=== PATIENT | female | born 1995 | race Caucasian/White ===

== ENCOUNTER 2018-10-03 16:50 | Emergency (ER) | payer BC ==
--- OUTSIDE RECORDS SUMMARY | 2018-10-03 16:52 | XMS REPORT ---
:1995 [facility] Address [address] [place] [address] Care Team Providers Name Role Phone Unavailable Unavailable Unavailable Payers Payer Name Policy Type Policy Number Effective Date Expiration Date Problems This patient has no known problems. Allergies, Adverse Reactions, Alerts Allergy Allergy Status Severity Reaction(s) Onset Inactive Treating Comments Name Type Date Date Clinician No Known DA Active U 2017-07 Allergies -12 00:00:0 0 Medications This patient has no known medications.
[2018-10-03] MEDS ORDERED: ACETAMINOPHEN 325 MG TABLET ONE (19:33)
--- NOTE | 2018-10-03 19:33 | ER ---
Nurse's Notes [facility] Name: Jennifer Norton Age: 22 yrs Sex: Female : 1995 Arrival Date: 10/03/2018 Time: 16:53 Bed 20 Private MD: None, None Diagnosis: Acute upper respiratory infection, unspecified Presentation: 10/03 17:15 Presenting complaint: Patient states: LMP- pt forgot but states due date of , 12/17/18; i have cough and fever that started yesterday; T- 100.1; took Tylenol; reports SOB;. Transition of care: patient was not received from another setting of care. Onset of symptoms was October 03, 2018. Risk Assessment: Do you want to hurt yourself or someone else? Patient reports no desire to harm self or others. Initial Sepsis Screen: Does the patient meet any 2 criteria? No. Patient's initial sepsis screen is negative. Does the patient have a suspected source of infection? No. Patient's initial sepsis screen is negative. Care prior to arrival: None. 17:15 Method Of Arrival: Ambulatory 17:15 Acuity: MROENO 4 hj Triage Assessment: 17:18 General: Appears in no apparent distress. uncomfortable, Behavior is calm, cooperative, hj appropriate for age. Pain: Complains of pain in back. 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 - Social history:: Smoking status: Patient/guardian denies using tobacco, Patient/guardian denies using alcohol. - Ebola Screening: : Patient negative for fever greater than or equal to 101.5 degrees Fahrenheit, and additional compatible Ebola Virus Disease symptoms Patient denies exposure to infectious person Patient denies travel to an Ebola-affected area in the 21 days before illness onset. Screenin:19 Abuse screen: Denies threats or abuse. Denies injuries from another. Nutritional hj screening: No deficits noted. Tuberculosis screening: No symptoms or risk factors identified. Fall Risk None identified. Assessment: 17:33 General: Appears uncomfortable, Behavior is calm, cooperative. Pain: Complains of pain ed1 in back Pain currently is 6 out of 10 on a pain scale. Quality of pain is described as aching. Neuro: Level of Consciousness is awake, alert, obeys commands, Oriented to person, place, time, situation. Cardiovascular: Denies chest pain, Heart tones S1 S2 present. Respiratory: Reports cough that is Airway is patent Respiratory effort is even, unlabored, Respiratory pattern is regular, symmetrical, Breath sounds are clear bilaterally. GI: No signs and/or symptoms were reported involving the gastrointestinal system. : No signs and/or symptoms were reported regarding the genitourinary system. EENT: No signs and/or symptoms were reported regarding the EENT system. Derm: Skin is intact, is healthy with good turgor, Skin is dry, Skin is normal, Skin temperature is warm. Musculoskeletal: Circulation, motion, and sensation intact. Range of motion: intact in all extremities. 19:13 Reassessment: Patient appears in no apparent distress at this time. No changes from ed1 previously documented assessment. Patient and/or family updated on plan of care and expected duration. Pain level reassessed. Patient is alert, oriented x 3, equal unlabored respirations, skin warm/dry/pink. Patient states symptoms have not improved. Vital Signs: 17:19 BP 109 / 68; Pulse 112; Resp 20; Temp 100.4(O); Pulse Ox 99% on R/A; Weight 69.85 kg; Height 5 ft. 2 in. (157.48 cm); 19:13 BP 110 / 70; Pulse 113; Resp 20; Temp 99.7(TE); Pulse Ox 100% on R/A; Pain 4/10; ed1 17:19 Body Mass Index 28.17 (69.85 kg, 157.48 cm) ED Course: 16:53 Patient arrived in ED. mr 16:54 None, None is Private Physician. mr 17:17 Triage completed. 17:19 Arm band placed on right wrist. 17:20 Patient has correct armband on for positive identification. Bed in low position. Call light in reach. Side rails up X 1. Adult w/ patient. 17:26 Kayleigh Serra, RN is Primary Nurse. ed1 17:28 Geno Nesbitt FNP is PHCP. ca 17:28 Esequiel Villalta MD is Attending Physician. ca 18:02 Flu Sent. ed1 19:40 No provider procedures requiring assistance completed. Patient did not have IV access ed1 during this emergency room visit. Administered Medications: 19:24 Drug: Tylenol 650 mg Route: PO; ed1 19:41 Follow up: Response: No adverse reaction ed1 Outcome: 19:33 Discharge ordered by . ca 19:40 Discharged to home ambulatory. ed1 19:40 Condition: good 19:40 Discharge instructions given to patient, Instructed on discharge instructions, follow up and referral plans. medication usage, Demonstrated understanding of instructions, follow-up care, medications, Prescriptions given X 1. 19:40 Patient left the ED. ed1 Signatures: Geno Nesbitt FNP WIRELESS INTERNET INSTALLER ca Tess Cervantes mr SerraKayleigh, RN RN ed1 Sergio Young RN RN Corrections: (The following items were deleted from the chart) 17:21 17:19 Pulse 112bpm; Resp 20bpm; Pulse Ox 99% RA; Temp 100.4F Oral; 69.85 kg; Height 5 hj ft. 2 in.; BMI: 28.1; hj
--- NOTE | 2018-10-03 19:33 | EDPHYS ---
Physician Documentation [facility] Name: Jennifer Norton Age: 22 yrs Sex: Female : 1995 Arrival Date: 10/03/2018 Time: 16:53 Bed 20 Private MD: None, None ED Physician Esequiel Villalta HPI: 10/03 19:31 This 22 yrs old Female presents to ER via Ambulatory with complaints of nh Cough, Fever. 19:31 The patient or guardian reports cough, that is intermittent. Onset: The nh symptoms/episode began/occurred this morning. Severity of symptoms: At their worst the symptoms were moderate, just prior to arrival, in the emergency department the symptoms are unchanged. Modifying factors: The symptoms are alleviated by nothing, the symptoms are aggravated by nothing. The patient has not experienced similar symptoms in the past. The patient has not recently seen a physician. 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 - Social history:: Smoking status: Patient/guardian denies using tobacco, Patient/guardian denies using alcohol. - Ebola Screening: : Patient negative for fever greater than or equal to 101.5 degrees Fahrenheit, and additional compatible Ebola Virus Disease symptoms Patient denies exposure to infectious person Patient denies travel to an Ebola-affected area in the 21 days before illness onset. ROS: 19:31 Eyes: Negative for injury, pain, redness, and discharge, Neck: Negative for injury, nh pain, and swelling, Cardiovascular: Negative for chest pain, palpitations, and edema, Abdomen/GI: Negative for abdominal pain, nausea, vomiting, diarrhea, and constipation, Back: Negative for injury and pain, : Negative for injury, bleeding, discharge, and swelling, MS/Extremity: Negative for injury and deformity, Skin: Negative for injury, rash, and discoloration, Neuro: Negative for headache, weakness, numbness, tingling, and seizure. 19:31 Constitutional: Positive for fever. 19:31 ENT: Positive for sinus pain, sore throat. 19:31 Respiratory: Positive for cough. Exam: 19:31 Constitutional: This is a well developed, well nourished patient who is awake, alert, nh and in no acute distress. Head/Face: Normocephalic, atraumatic. Eyes: Pupils equal round and reactive to light, extra-ocular motions intact. Lids and lashes normal. Conjunctiva and sclera are non-icteric and not injected. Cornea within normal limits. Periorbital areas with no swelling, redness, or edema. ENT: Nares patent. No nasal discharge, no septal abnormalities noted. Tympanic membranes are normal and external auditory canals are clear. Oropharynx with no redness, swelling, or masses, exudates, or evidence of obstruction, uvula midline. Mucous membranes moist. Neck: Trachea midline, no thyromegaly or masses palpated, and no cervical lymphadenopathy. Supple, full range of motion without nuchal rigidity, or vertebral point tenderness. No Meningismus. Chest/axilla: Normal chest wall appearance and motion. Nontender with no deformity. No lesions are appreciated. Cardiovascular: Regular rate and rhythm with a normal S1 and S2. No gallops, murmurs, or rubs. Normal PMI, no JVD. No pulse deficits. Respiratory: Lungs have equal breath sounds bilaterally, clear to auscultation and percussion. No rales, rhonchi or wheezes noted. No increased work of breathing, no retractions or nasal flaring. Abdomen/GI: Soft, non-tender, with normal bowel sounds. No distension or tympany. No guarding or rebound. No evidence of tenderness throughout. Back: No spinal tenderness. No costovertebral tenderness. Full range of motion. Skin: Warm, dry with normal turgor. Normal color with no rashes, no lesions, and no evidence of cellulitis. MS/ Extremity: Pulses equal, no cyanosis. Neurovascular intact. Full, normal range of motion. Neuro: Awake and alert, GCS 15, oriented to person, place, time, and situation. Cranial nerves II-XII grossly intact. Motor strength 5/5 in all extremities. Sensory grossly intact. Cerebellar exam normal. Normal gait. Psych: Awake, alert, with orientation to person, place and time. Behavior, mood, and affect are within normal limits. Vital Signs: 17:19 BP 109 / 68; Pulse 112; Resp 20; Temp 100.4(O); Pulse Ox 99% on R/A; Weight 69.85 kg; hj Height 5 ft. 2 in. (157.48 cm); 19:13 BP 110 / 70; Pulse 113; Resp 20; Temp 99.7(TE); Pulse Ox 100% on R/A; Pain 4/10; ed1 17:19 Body Mass Index 28.17 (69.85 kg, 157.48 cm) hj MDM: 17:28 Patient medically screened. il 19:31 Data reviewed: vital signs, nurses notes, lab test result(s), I have discussed the il patient's presentation/case with the attending Emergency Department Physician; and as a result, I will discharge patient. Counseling: I had a detailed discussion with the patient and/or guardian regarding: the historical points, exam findings, and any diagnostic results supporting the discharge/admit diagnosis, lab results, the need for outpatient follow up, to return to the emergency department if symptoms worsen or persist or if there are any questions or concerns that arise at home. 10/03 17:38 Order name: Flu ed1 10/03 17:38 Order name: Flu il Administered Medications: 19:24 Drug: Tylenol 650 mg Route: PO; ed1 19:41 Follow up: Response: No adverse reaction ed1 Disposition: 10/03/18 19:33 Discharged to Home. Impression: Acute upper respiratory infection, unspecified. - Condition is Stable. - Discharge Instructions: Upper Respiratory Infection, Adult. - Prescriptions for Zithromax Z- Perico 250 mg Oral Tablet - take 1 tablet by ORAL route as directed for 5 days Day 1 - take two (2) tablets one time. Day 2, 3, 4 , 5 take one (1) tablet once daily.; 6 tablet. - Medication Reconciliation Form, Thank You Letter, Antibiotic Education, Prescription Opioid Use form. - Follow up: Private Physician; When: 2 - 3 days; Reason: Recheck today's complaints. - Problem is new. - Symptoms are unchanged. Signatures: Dispatcher [employer] EDMS Geno Nesbitt FNP LUMBER SORTER [place] Kayleigh Serra RN RN ed1 Sergio Young RN RN Corrections: (The following items were deleted from the chart) 19:40 19:33 10/03/2018 19:33 Discharged to Home. Impression: Acute upper respiratory ed1 infection, unspecified. Condition is Stable. Forms are Medication Reconciliation Form, Thank You Letter, Antibiotic Education, Prescription Opioid Use. Follow up: Private Physician; When: 2 - 3 days; Reason: Recheck today's complaints. Problem is new. Symptoms are unchanged. nh
== END 2018-10-03 19:40 | disposition home or self-care (01) ==
LOC: ER 16:50
DX: J06.9 Acute upper respiratory infection, unspecified (principal)
CPT/HCPCS: 87804; 99283

== ENCOUNTER 2018-12-27 12:04 | Emergency (ER) | payer BC ==
--- OUTSIDE RECORDS SUMMARY | 2018-12-27 12:07 | XMS REPORT ---
:1995 [facility] Address [address] [place] [address] Care Team Providers Name Role Phone Unavailable Unavailable Unavailable Payers Payer Name Policy Type Policy Number Effective Date Expiration Date Problems This patient has no known problems. Allergies, Adverse Reactions, Alerts Allergy Allergy Status Severity Reaction(s) Onset Inactive Treating Comments Name Type Date Date Clinician No Known DA Active U 2018-11 Drug -28 Allergies 00:00:0 0 No Known DA Active U 2017-07 Allergies -12 00:00:0 0 Medications This patient has no known medications. Results Test Description Test Time Test Comments Text Results Atomic Results Result Comments CBC W/AUTO DIFF 2018-12-21 07:05:00 Test Item Value Reference Range Comments WHITE BLOOD CELL (test code=WBC) 13.1 K/mm3 6.6-12.1 RED BLOOD CELL (test code=RBC) 3.49 M/mm3 3.45-5.01 HEMOGLOBIN (test code=HGB) 10.5 g/dL 10.7-13.9 HEMATOCRIT (test code=HCT) 32.6 % 32.1-42.1 MEAN CELL VOLUME (test code=MCV) 93 fL 84.1-94.8 MEAN CELL HGB (test code=MCH) 30.1 pg 27-35 MEAN CELL HGB CONCETRATION (test code=MCHC) 32.2 gm/dL 32.2-34.1 RED CELL DISTRIBUTION WIDTH (test code=RDW) 14.9 % 12.4-16.5 PLATELET COUNT (test code=PLT) 208 K/mm3 133-385 IMMATURE PLATELET FRACTION (test code=IPF) 0.0 % 0.0-10.8 MEAN PLATELET VOLUME (test code=MPV) 10.2 fl 9.1-12.7 NEUTROPHIL % (test code=NT%) 64.8 % 56.5-79.4 LYMPHOCYTE % (test code=LY%) 25.2 % 14.3-34.3 MONOCYTE % (test code=MO%) 8.4 % 5.1-10.4 EOSINOPHIL % (test code=EO%) 0.8 % 0.1-3.0 BASOPHIL % (test code=BA%) 0.2 % 0.1-1.0 NEUTROPHIL # (test code=NT#) 8.5 K/mm3 LYMPHOCYTE # (test code=LY#) 3.3 K/mm3 MONOCYTE # (test code=MO#) 1.1 K/mm3 EOSINOPHIL # (test code=EO#) 0.11 K/mm3 BASOPHIL # (test code=BA#) 0.0 K/mm3 RBC MORPHOLOGY REQUIRED (test code=RBCM) NORMAL NORMAL PLATELET MORPHOLOGY REQUIRED (test code=PLTMR) NORMAL NORMAL AG HEPATITIS B [id number] 00:00:00 Test Item Value Reference Range Comments AG HEPATITIS B SURFACE (test code=HBSAG) NONREACTIVE NONREACTIVE AB HEPATITIS C [id number] 00:00:00 Test Item Value Reference Range Comments AB HEPATITIS C (test code=HCVAB) NONREACTIVE NONREACTIVE SIGNAL TO CUTOFF (test code=CUTOFF) 0.03 <0.80 AB [id number] 00:00:00 Test Item Value Reference Range Comments AB TREPONEMA (test code=TREPAB) NONREACTIVE NONREACTIVE CBC W/AUTO [id number] 23:21:00 Test Item Value Reference Range Comments WHITE BLOOD CELL (test code=WBC) 12.2 K/mm3 6.6-12.1 RED BLOOD CELL (test code=RBC) 4.21 M/mm3 3.45-5.01 HEMOGLOBIN (test code=HGB) 12.8 g/dL 10.7-13.9 HEMATOCRIT (test code=HCT) 39.0 % 32.1-42.1 MEAN CELL VOLUME (test code=MCV) 93 fL 84.1-94.8 MEAN CELL HGB (test code=MCH) 30.4 pg 27-35 MEAN CELL HGB CONCETRATION (test code=MCHC) 32.8 gm/dL 32.2-34.1 RED CELL DISTRIBUTION WIDTH (test code=RDW) 14.6 % 12.4-16.5 PLATELET COUNT (test code=PLT) 259 K/mm3 133-385 IMMATURE PLATELET FRACTION (test code=IPF) 0.0 % 0.0-10.8 MEAN PLATELET VOLUME (test code=MPV) 10.3 fl 9.1-12.7 NEUTROPHIL % (test code=NT%) 72.1 % 56.5-79.4 LYMPHOCYTE % (test code=LY%) 19.5 % 14.3-34.3 MONOCYTE % (test code=MO%) 6.7 % 5.1-10.4 EOSINOPHIL % (test code=EO%) 0.7 % 0.1-3.0 BASOPHIL % (test code=BA%) 0.2 % 0.1-1.0 NEUTROPHIL # (test code=NT#) 8.8 K/mm3 LYMPHOCYTE # (test code=LY#) 2.4 K/mm3 MONOCYTE # (test code=MO#) 0.8 K/mm3 EOSINOPHIL # (test code=EO#) 0.08 K/mm3 BASOPHIL # (test code=BA#) 0.0 K/mm3 RBC MORPHOLOGY REQUIRED (test code=RBCM) NORMAL NORMAL PLATELET MORPHOLOGY REQUIRED (test code=PLTMR) NORMAL NORMAL URINALYSIS [id number] 04:19:00 Test Item Value Reference Range Comments UA COLOR (test code=COLU) YELLOW YELLOW UA APPEARANCE (test code=APPU) CLEAR CLEAR UA GLUCOSE DIPSTICK (test code=DGLUU) NEGATIVE NEGATIVE UA BILIRUBIN DIPSTICK (test code=BILU) NEGATIVE NEGATIVE UA KETONE DIPSTICK (test code=KETU) NEGATIVE NEGATIVE UA SPECIFIC GRAVITY (test code=SGU) 1.010 1.001-1.035 UA BLOOD DIPSTICK (test code=KELLY) TRACE NEGATIVE UA PH DIPSTICK (test code=TAMMI) 7.0 5-9 UA PROTEIN DIPSTICK (test code=PROU) NEGATIVE NEGATIVE UA UROBILINIOGEN DIPSTICK (test code=URO) 0.2 EU/dL <=1.0 UA NITRITE DIPSTICK (test code=ELYSE) NEGATIVE NEGATIVE UA LEUKOCYTE ESTERASE DIPSTICK (test 1+ NEGATIVE code=LEUU) UA WBC (test code=WBCU) 5-10 #/hpf NONE SEEN UA RBC (test code=RBCU) 2-5 #/hpf NONE SEEN UA EPITHELIAL CELLS (test code=EPIU) MODERATE #/hpf NONE SEEN UA BACTERIA (test code=BACU) FEW #/hpf NONE SEEN UA AMORPHOUS SEDIMENT (test code=AMORU) 1+ NONE SEEN URINE SAMPLE: CLEAN CATCH
[2018-12-27 12:58] LABS: Urine Blood 1+ (NEG); Urine Glucose NEGATIVE (NEG); Urine Protein NEGATIVE (NEG); Urine Specific Gravity 1.005 (1.005-1.030)
[2018-12-27 13:01] LABS: Urine Bacteria <20 /HPF (<20); Urine Culture Reflex Order NOT NEEDED; Urine RBC <5 /HPF (NONE SEEN)
[2018-12-27 13:10] LABS: Absolute Lymphocytes (CBC) 1.1 K/uL (0.7-4.9); Absolute Monocytes 0.9 K/uL (0.1-1.3); Absolute Neutrophil 9.5 K/uL (1.8-8.0); Basophils % 0.3 % (0-1.3); Eosinophils % 0.7 % (0-4.4); Hematocrit 37.7 % (36.0-45.0); Lymphocytes % 9.7 % (15.3-44.8); MPV 7.8 fL (7.6-11.3); Monocytes % 7.7 % (3.3-12.3); RBC Red Blood Cell Count 4.18 M/uL (3.86-4.86)
[2018-12-27 13:14] LABS: BUN Blood Urea Nitrogen 15 mg/dL (7-18); Bicarbonate 24 mmol/L (21-32); Glucose Level 80 mg/dL (74-106); Potassium 4.3 mmol/L (3.5-5.1); Sodium Level 140 mmol/L (136-145)
--- NOTE | 2018-12-27 13:53 | ER ---
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 Transition of care: patient was not received from another setting of care. Onset of symptoms was December 27, 2018. Risk Assessment: Do you want to hurt yourself or someone else? Patient reports no desire to harm self or others. Initial Sepsis Screen: Does the patient meet any 2 criteria? Yes Does the patient have a suspected source of infection? Yes: Skin breakdown/wound. Care prior to arrival: None. 12:15 Method Of Arrival: Ambulatory 12:15 Acuity: MORENO 3 Triage Assessment: 12:17 General: Appears in no apparent distress. uncomfortable, Behavior is calm, cooperative, hj appropriate for age. Pain: Complains of pain in incision site. 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 - Social history:: Smoking status: Patient/guardian denies using tobacco, Patient/guardian denies using alcohol. - Ebola Screening: : Patient negative for fever greater than or equal to 101.5 degrees Fahrenheit, and additional compatible Ebola Virus Disease symptoms Patient denies exposure to infectious person Patient denies travel to an Ebola-affected area in the 21 days before illness onset. Screenin:18 Abuse screen: Denies threats or abuse. Denies injuries from another. Nutritional screening: No deficits noted. Tuberculosis screening: No symptoms or risk factors identified. Fall Risk None identified. Assessment: 12:17 General: Appears in no apparent distress. uncomfortable, Behavior is calm, cooperative, hj appropriate for age. Pain: Complains of pain in abdomen. Neuro: Level of Consciousness is awake, alert, obeys commands, Oriented to person, place, time, situation, Appropriate for age. Cardiovascular: Capillary refill < 3 seconds Patient's skin is warm and dry. Respiratory: Airway is patent Respiratory effort is even, unlabored, Respiratory pattern is regular, symmetrical. GI: Reports lower abdominal pain. : No signs and/or symptoms were reported regarding the genitourinary system. EENT: No signs and/or symptoms were reported regarding the EENT system. Derm: No signs and/or symptoms reported regarding the dermatologic system. Musculoskeletal: No signs and/or symptoms reported regarding the musculoskeletal system. 13:45 Reassessment: Patient and/or family updated on plan of care and expected duration. Pain hj level reassessed. Patient is alert, oriented x 3, equal unlabored respirations, skin warm/dry/pink. provider in room for POC: Patient states feeling better. Patient states symptoms have improved. Vital Signs: 12:18 BP 119 / 75; Pulse 95; Resp 18; Temp 99.6(O); Pulse Ox 96% on R/A; Weight 74.39 kg; hj Height 5 ft. 2 in. (157.48 cm); Pain 7/10; 13:45 BP 115 / 69; Pulse 65; Resp 18; Pulse Ox 100% on R/A; hj 12:18 Body Mass Index 30.00 (74.39 kg, 157.48 cm) hj ED Course: 12:07 Patient arrived in ED. ag5 12:08 Unknown, Unknown is Private Physician. ag5 12:10 Larry Ramirez PA is PHCP. jr8 12:10 Andre Rico MD is Attending Physician. jr8 12:15 Sergio Young RN is Primary Nurse. hj 12:17 Triage completed. hj 12:18 Arm band placed on right wrist. hj 12:19 Patient has correct armband on for positive identification. Placed in gown. Bed in low hj position. Call light in reach. Side rails up X 1. 12:52 Inserted saline lock: 22 gauge in left antecubital area, using aseptic technique. Blood tr5 collected. 12:53 Basic Metabolic Panel Sent. tr5 12:53 CBC with Diff Sent. tr5 14:02 No provider procedures requiring assistance completed. IV discontinued, intact, hj bleeding controlled, No redness/swelling at site. Pressure dressing applied. Administered Medications: No medications were administered Outcome: 13:50 Discharge ordered by . beronica 14:02 Discharged to home ambulatory, with family. 14:02 Condition: stable 14:02 Discharge instructions given to patient, family, Instructed on discharge instructions, follow up and referral plans. Demonstrated understanding of instructions, follow-up care. 14:02 Patient left the ED. Signatures: Larry Ramirez PA PA jr8 Sergio Young, RN RN Leo Morales 5 Chao Shukla, RN RN tr5
--- NOTE | 2018-12-27 13:53 | EDPHYS ---
Physician Documentation [facility] Name: Jennifer Norton Age: 23 yrs Sex: Female : 1995 Arrival Date: 12/27/2018 Time: 12:07 Bed 6 Private MD: Unknown, Unknown ED Physician Andre Rico HPI: 12/27 13:59 This 23 yrs old Female presents to ER via Ambulatory with complaints of jr8 Fever, CHILLS. 13:59 The patient reports fever, with an emergency department temperature of 99.6 degrees jr8 Fahrenheit. Onset: The symptoms/episode began/occurred acutely, yesterday. Modifying factors: there are no obvious modifying factors. Associated signs and symptoms: Pertinent positives: arthralgias. Severity of symptoms: At their worst the symptoms were mild in the emergency department the symptoms are unchanged. The patient has not experienced similar symptoms in the past. The patient has not recently seen a physician. Patient stated that she had about 1 week ago. Had been doing well since then. Mild soreness to right lower abdomen since surgery. Now having fevers and body aches. Denies any other symptoms currently . [employer]: 12:18 LMP N/A - Recent hj Historical: - Allergies: 12:17 NKDA; hj - Home Meds: 12:17 Vitamin Oral tab 1 tab once daily [Active]; hj - PMHx: 12:17 None; hj - PSHx: 12:17 ; Ear Tubes; hj - Immunization history:: Adult Immunizations up to date. - Social history:: Smoking status: Patient/guardian denies using tobacco, Patient/guardian denies using alcohol. - Ebola Screening: : Patient negative for fever greater than or equal to 101.5 degrees Fahrenheit, and additional compatible Ebola Virus Disease symptoms Patient denies exposure to infectious person Patient denies travel to an Ebola-affected area in the 21 days before illness onset. ROS: 13:59 Eyes: Negative for injury, pain, redness, and discharge, ENT: Negative for injury, jr8 pain, and discharge, Neck: Negative for injury, pain, and swelling, Cardiovascular: Negative for chest pain, palpitations, and edema, Respiratory: Negative for shortness of breath, cough, wheezing, and pleuritic chest pain, Abdomen/GI: Negative for abdominal pain, nausea, vomiting, diarrhea, and constipation, Back: Negative for injury and pain, MS/Extremity: Negative for injury and deformity, Skin: Negative for injury, rash, and discoloration, Neuro: Negative for headache, weakness, numbness, tingling, and seizure. 13:59 Constitutional: Positive for body aches, chills, fever. Exam: 13:59 Eyes: Pupils equal round and reactive to light, extra-ocular motions intact. Lids and jr8 lashes normal. Conjunctiva and sclera are non-icteric and not injected. Cornea within normal limits. Periorbital areas with no swelling, redness, or edema. ENT: Nares patent. No nasal discharge, no septal abnormalities noted. Tympanic membranes are normal and external auditory canals are clear. Oropharynx with no redness, swelling, or masses, exudates, or evidence of obstruction, uvula midline. Mucous membranes moist. Neck: Trachea midline, no thyromegaly or masses palpated, and no cervical lymphadenopathy. Supple, full range of motion without nuchal rigidity, or vertebral point tenderness. No Meningismus. Cardiovascular: Regular rate and rhythm with a normal S1 and S2. No gallops, murmurs, or rubs. Normal PMI, no JVD. No pulse deficits. Respiratory: Lungs have equal breath sounds bilaterally, clear to auscultation and percussion. No rales, rhonchi or wheezes noted. No increased work of breathing, no retractions or nasal flaring. Abdomen/GI: Soft with normal bowel sounds. No distension or tympany. No guarding or rebound. Mild tenderness to right lower abdomen. Surgical wound healing well. No active bleeding or discharge. No erythema surrounding area Back: No spinal tenderness. No costovertebral tenderness. Full range of motion. Skin: Warm, dry with normal turgor. Normal color with no rashes, no lesions, and no evidence of cellulitis. MS/ Extremity: Pulses equal, no cyanosis. Neurovascular intact. Full, normal range of motion. Neuro: Awake and alert, GCS 15, oriented to person, place, time, and situation. Cranial nerves II-XII grossly intact. Motor strength 5/5 in all extremities. Sensory grossly intact. Cerebellar exam normal. Normal gait. 13:59 Chest/axilla: Normal chest wall appearance and motion. Nontender with no deformity. No lesions are appreciated. Vital Signs: 12:18 BP 119 / 75; Pulse 95; Resp 18; Temp 99.6(O); Pulse Ox 96% on R/A; Weight 74.39 kg; hj Height 5 ft. 2 in. (157.48 cm); Pain 7/10; 13:45 BP 115 / 69; Pulse 65; Resp 18; Pulse Ox 100% on R/A; hj 12:18 Body Mass Index 30.00 (74.39 kg, 157.48 cm) MDM: 12:10 Patient medically screened. jr8 13:50 Data reviewed: vital signs, nurses notes, lab test result(s), and as a result, I will jr discharge patient. Data interpreted: Pulse oximetry: on room air is 100 %. Interpretation: normal. Counseling: I had a detailed discussion with the patient and/or guardian regarding: the historical points, exam findings, and any diagnostic results supporting the discharge/admit diagnosis, lab results, the need for outpatient follow up, a family practitioner, an OB/Gyne specialist, to return to the emergency department if symptoms worsen or persist or if there are any questions or concerns that arise at home. 14:03 ED course: Discussed with patient that there is no apparent source for the fever that jr we can find on physical exam or lab work. May be viral infection. To monitor herself closely for the next couple of days. Push fluids and do Tylenol and Motrin. If any new symptoms were to arise to come back for further evaluation. Otherwise to f/u with PCP after the holiday. Patient good with this . 12/27 12:28 Order name: CBC with Diff; Complete Time: 13:42 8 12/27 12:28 Order name: Basic Metabolic Panel; Complete Time: 13:21 8 12/27 12:28 Order name: Urine Microscopic Only; Complete Time: 13:21 [facility] 12/27 12:28 Order name: Urine Dipstick-Ancillary (obtain specimen); Complete Time: 13:06 [facility] 12/27 12:28 Order name: IV; Complete Time: 12:53 [facility] 12/27 12:46 Order name: Urine Dipstick--Ancillary (enter results); Complete Time: 13:21 eb Administered Medications: No medications were administered Disposition: 12/27/18 13:50 Discharged to Home. Impression: Fever, unspecified. - Condition is Stable. - Discharge Instructions: Fever, Adult. - Medication Reconciliation Form, Thank You Letter, Antibiotic Education, Prescription Opioid Use form. - Follow up: Private Physician; When: 2 - 3 days; Reason: Recheck today's complaints, Continuance of care, Re-evaluation by your physician. - Problem is new. - Symptoms have improved. Addendum: 12/30/2018 09:03 Co-signature as Attending Physician, Andre Rico MD I agree with the assessment and c husain plan of care. Signatures: Dispatcher [employer] EDHI Andre Rico MD MD cha Roszak, Josh, PA PA jr8 Sergio Young, RN RN hj Corrections: (The following items were deleted from the chart) 12/27 14:02 13:50 12/27/2018 13:50 Discharged to Home. Impression: Fever, unspecified. Condition is hj Stable. Forms are Medication Reconciliation Form, Thank You Letter, Antibiotic Education, Prescription Opioid Use. Follow up: Private Physician; When: 2 - 3 days; Reason: Recheck today's complaints, Continuance of care, Re-evaluation by your physician. Problem is new. Symptoms have improved. jr8
== END 2018-12-27 14:02 | disposition home or self-care (01) ==
LOC: ER 12:04
DX: R50.9 Fever, unspecified (principal)
CPT/HCPCS: 36415; 80048; 81003; 81015; 85025; 99283

== ENCOUNTER 2021-01-13 15:48 | Emergency (ER) | payer BC ==
--- NOTE | 2021-01-13 17:21 | RAD REPORT ---
EXAM DESCRIPTION: RAD - Wrist Right 3 View - 01/13/2021 4:52 pm CLINICAL HISTORY: PAIN Pain COMPARISON: None FINDINGS: Right wrist and right forearm - multiple projections are submitted. A subtle buckle fracture is suspected involving the distal radial metaphysis with mild soft tissue sw elling. This is particularly notable along the radial aspect. No dislocation.
--- NOTE | 2021-01-13 17:56 | EDPHYS ---
Physician Documentation [facility] Name: Jennifer Norton Age: 25 yrs Sex: Female : 1995 Arrival Date: 01/13/2021 Time: 15:50 Bed 26 Private MD: ED Physician Esequiel Villalta HPI: 01/13 19:15 This 25 yrs old Female presents to ER via Ambulatory with complaints of Arm kb Injury, Neck Injury. 19:15 The patient or guardian complains of injury, pain, swelling, tenderness. The complaints kb affect the right forearm. Context: The problem was sustained at home, resulted from a direct blow. Onset: The symptoms/episode began/occurred just prior to arrival. Treatment prior to arrival includes: no previous treatment. Modifying factors: The symptoms are alleviated by nothing. the symptoms are aggravated by movement. Associated signs and symptoms: Pertinent positives: decreased range of motion, pain, swelling, of the right forearm. Severity of symptoms: At their worst the symptoms were moderate, in the emergency department the symptoms are unchanged. The patient has not experienced similar symptoms in the past. The patient has not recently seen a physician. Pt reports someone was pulling a stump with a tow strap and the strap broke and started swinging. States she thought she was far enough away, but the strap whipped up her back and the hook hit her right forearm. c/o pain and swelling to right forearm. Historical: - Allergies: 16:01 NKDA; kg - PSHx: 16:01 ; kg - Immunization history:: Adult Immunizations not up to date, Client reports having NOT received the Covid vaccine. - Social history:: Smoking status: Patient denies any tobacco usage or history of. Patient uses alcohol, occasionally. ROS: 19:13 Constitutional: Negative for fever, chills, and weight loss. kb 19:13 MS/extremity: Positive for injury or acute deformity, decreased range of motion, pain, swelling, tenderness, of the right forearm. 19:13 Skin: Positive for erythema, of the back. 19:13 All other systems are negative. Exam: 19:13 Constitutional: This is a well developed, well nourished patient who is awake, alert, kb and in no acute distress. Head/Face: Normocephalic, atraumatic. ENT: Moist Mucous membranes Respiratory: Respirations even and unlabored. No increased work of breathing, no retractions or nasal flaring. Neuro: Awake and alert, GCS 15, oriented to person, place, time, and situation. Moves all extremities. Normal gait. Psych: Awake, alert, with orientation to person, place and time. Behavior, mood, and affect are within normal limits. 19:13 Musculoskeletal/extremity: Extremities: grossly normal except: noted in the right forearm: pain, swelling, tenderness, ROM: limited active range of motion due to pain, in the right forearm, Circulation is intact in all extremities. Sensation intact. 19:13 Skin: injury, contusion(s), that are superficial, of the back. Vital Signs: 15:56 BP 121 / 80; Pulse 60; Resp 20; Temp 99.3(O); Pulse Ox 100% ; Weight 83.01 kg (M); kg Height 5 ft. 2 in. (157.48 cm) (R); Pain 6/10; 15:56 Body Mass Index 33.47 (83.01 kg, 157.48 cm) kg Procedures: 19:18 Splinting: Splint applied to right forearm using Orthoglass splint, applied by tech. kb Examined by me, post splint application: neurovascular intact, 2+ distal pulses palpable, brisk capillary refill noted, Patient tolerated well. MDM: 16:20 Patient medically screened. kb 19:12 Data reviewed: vital signs, nurses notes. Data interpreted: Pulse oximetry: on room air kb is 100 %. Interpretation: normal. Counseling: I had a detailed discussion with the patient and/or guardian regarding: the historical points, exam findings, and any diagnostic results supporting the discharge/admit diagnosis, radiology results, the need for outpatient follow up, a family practitioner, to return to the emergency department if symptoms worsen or persist or if there are any questions or concerns that arise at home. 01/13 16:19 Order name: Wrist Right 3 View XRAY; Complete Time: 17:29 kg 01/13 16:42 Order name: Forearm Right XRAY kb 01/13 17:30 Order name: Sugar Tong Forearm Splint; Complete Time: 19:36 kb 01/13 17:30 Order name: Sling; Complete Time: 19:36 kb Administered Medications: 17:56 Drug: [place] (HYDROcodone-acetaminophen) (7.5 mg-325 mg) 1 tabs Route: PO; aj1 18:30 Follow up: Response: No adverse reaction aj1 Disposition: 01/13/21 17:55 Discharged to Home. Impression: Buckle fracture distal radius. - Condition is Stable. - Discharge Instructions: Forearm Fracture, [id number]. - Prescriptions for Diclofenac Sodium 75 mg Oral Tablet, Delayed Release (E.C.) - take 1 tablet by ORAL route 2 times per day As needed; 30 tablet. - Medication Reconciliation Form, Thank You Letter, Antibiotic Education, Prescription Opioid Use, Work release form form. - Follow up: Emergency Department; When: As needed; Reason: Worsening of condition. Follow up: Private Physician; When: 2 - 3 days; Reason: Recheck today's complaints, Continuance of care, Re-evaluation by your physician. Addendum: 01/16/2021 11:17 Co-signature as Attending Physician, Eseqiuel Villalta MD I agree with the assessment and k dr plan of care. Signatures: Dispatcher [employer] EDNM Danna Maria, ARELIS-C GLASS SANDER BELT-Ckb Marlena Arredondo RN RN aj1 Esequiel Villalta MD MD kdr Claudia Manzo RN RN kg Corrections: (The following items were deleted from the chart) 01/13 19:40 17:55 01/13/2021 17:55 Discharged to Home. Impression: Buckle fracture distal radius. aj1 Condition is Stable. Forms are Medication Reconciliation Form, Thank You Letter, Antibiotic Education, Prescription Opioid Use. Follow up: Emergency Department; When: As needed; Reason: Worsening of condition. Follow up: Private Physician; When: 2 - 3 days; Reason: Recheck today's complaints, Continuance of care, Re-evaluation by your physician. kb
--- NOTE | 2021-01-13 17:56 | ER ---
Nurse's Notes [facility] Name: Jennifer Norton Age: 25 yrs Sex: Female : 1995 Arrival Date: 01/13/2021 Time: 15:50 Bed 26 Private MD: Diagnosis: Buckle fracture distal radius Presentation: 01/13 15:56 Chief complaint: Patient states: Pt presents to ER with Right wrist pain, back of neck, kg and lower back pain. Pt stated, " I was pulling out scrubs with a rope and metal clasp and the rope slipped and metal clasp hit my wrist and the rope caught the back of my neck and lower back.". Coronavirus screen: Client denies travel out of the [place] in the last 14 days. At this time, unable to obtain information related to travel outside the [place] At this time, the client does not indicate any symptoms associated with coronavirus-19. Ebola Screen: Patient negative for fever greater than or equal to 101.5 degrees Fahrenheit, and additional compatible Ebola Virus Disease symptoms Patient denies exposure to infectious person. Patient denies travel to an Ebola-affected area in the 21 days before illness onset. Initial Sepsis Screen: Does the patient meet any 2 criteria? No. Patient's initial sepsis screen is negative. Does the patient have a suspected source of infection? No. Patient's initial sepsis screen is negative. Risk Assessment: Do you want to hurt yourself or someone else? Patient reports no desire to harm self or others. Onset of symptoms was January 13, 2021 at 15:30. 15:56 Method Of Arrival: Ambulatory kg 15:56 Acuity: MORENO 4 kg Triage Assessment: 16:01 General: Appears in no apparent distress. Behavior is calm, cooperative, appropriate kg for age, quiet. Pain: Complains of pain in right antecubital area, dorsal aspect of right forearm, right wrist, right hand, right elbow and palmar aspect of right forearm Pain radiates to back of neck and back Pain currently is 6 out of 10 on a pain scale. at worst was 10 out of 10 on a pain scale. level that patient reports is acceptable is 2 out of 10 on a pain scale. Quality of pain is described as aching, dull, sharp, throbbing, "swollen feeling". Musculoskeletal: Bony deformity noted of dorsal aspect of right forearm Swelling present in dorsal aspect of right forearm, right wrist and palmar aspect of right forearm. Historical: - Allergies: 16:01 NKDA; kg - PSHx: 16:01 ; kg - Immunization history:: Adult Immunizations not up to date, Client reports having NOT received the Covid vaccine. - Social history:: Smoking status: Patient denies any tobacco usage or history of. Patient uses alcohol, occasionally. Screenin:30 Abuse screen: Denies threats or abuse. Denies injuries from another. Nutritional aj1 screening: No deficits noted. Tuberculosis screening: No symptoms or risk factors identified. Fall Risk None identified. Assessment: 16:30 General: Appears in no apparent distress. uncomfortable, Behavior is calm, cooperative, aj1 appropriate for age. Pain: Complains of pain in right forearm Pain does not radiate. Pain currently is 9 out of 10 on a pain scale. Neuro: Level of Consciousness is awake, alert, obeys commands, Oriented to person, place, time, situation. Cardiovascular: Patient's skin is warm and dry. Respiratory: Airway is patent Respiratory effort is even, unlabored, Respiratory pattern is regular, symmetrical. GI: No signs and/or symptoms were reported involving the gastrointestinal system. : No signs and/or symptoms were reported regarding the genitourinary system. EENT: No signs and/or symptoms were reported regarding the EENT system. Derm: No signs and/or symptoms reported regarding the dermatologic system. Skin is pink, warm \\T\\ dry. normal. Musculoskeletal: Range of motion: limited in right forearm Swelling present in right forearm. 17:30 Reassessment: Patient appears in no apparent distress at this time. No changes from aj1 previously documented assessment. Patient and/or family updated on plan of care and expected duration. Pain level reassessed. Patient is alert, oriented x 3, equal unlabored respirations, skin warm/dry/pink. 18:30 Reassessment: Patient appears in no apparent distress at this time. No changes from aj1 previously documented assessment. Patient and/or family updated on plan of care and expected duration. Pain level reassessed. Patient is alert, oriented x 3, equal unlabored respirations, skin warm/dry/pink. Vital Signs: 15:56 BP 121 / 80; Pulse 60; Resp 20; Temp 99.3(O); Pulse Ox 100% ; Weight 83.01 kg (M); kg Height 5 ft. 2 in. (157.48 cm) (R); Pain 6/10; 15:56 Body Mass Index 33.47 (83.01 kg, 157.48 cm) kg ED Course: 15:50 Patient arrived in ED. as 15:59 Triage completed. kg 16:20 [facility]C [facility]. kb 16:20 Esequiel Villalta MD is Attending Physician. kb 16:30 No provider procedures requiring assistance completed. aj1 16:30 Patient has correct armband on for positive identification. aj1 16:52 Wrist Right 3 View XRAY In Process Unspecified. EDMS 16:59 Forearm Right XRAY In Process Unspecified. EDMS 17:32 Marlena Arredondo, RN is Primary Nurse. aj1 18:04 Orthoglass splint: Sugar tong splint applied on right arm. capillary refill <3 seconds, 3 reviewed by Claudia Maria N.Vish Sling applied to right arm. 18:30 Patient did not have IV access during this emergency room visit. aj1 Administered Medications: 17:56 Drug: [place] (HYDROcodone-acetaminophen) (7.5 mg-325 mg) 1 tabs Route: PO; aj1 18:30 Follow up: Response: No adverse reaction aj1 Outcome: 17:55 Discharge ordered by . kb 18:30 Discharged to home ambulatory. aj1 18:30 Condition: good 18:30 Discharge instructions given to patient, Instructed on discharge instructions, follow up and referral plans. medication usage, Demonstrated understanding of instructions, follow-up care, medications. 19:40 Patient left the ED. aj1 Signatures: Dispatcher [employer] EDAL Danna Maria FNP-C FNP-Ckb Johnson, Angela, RN RN aj1 Radha Fuller Deanna 3 Claudia Manzo RN RN kg
[2021-01-13] MEDS ORDERED: HYDROCODONE/APAP 7.5/325 MG TAB ONE (18:15)
[2021-01-13 20:16] VITALS: BP 121/80; TEMP 99.3; O2SAT 100
--- NOTE | 2021-01-16 20:05 | RAD REPORT ---
EXAM DESCRIPTION: RAD - Forearm Right - 01/13/2021 4:59 pm CLINICAL HISTORY: PAIN Pain COMPARISON: None FINDINGS: Right wrist and right forearm - multiple projections are submitted. A subtle buckle fracture is suspected involving the distal radial metaphysis with mild soft tissue sw elling. This is particularly notable along the radial aspect. No dislocation.
== END 2021-01-13 19:40 | disposition home or self-care (01) ==
LOC: ER 15:48
PROC: 2W3CX1Z Immobilization of Right Lower Arm using Splint (ICD-10-PCS; principal; 2021-01-13)
DX: S52.521A Torus fracture of lower end of right radius, initial encounter for closed fracture (principal); W20.8XXA Other cause of strike by thrown, projected or falling object, initial encounter
CPT/HCPCS: 99283